=== PATIENT | female | born 1970 | race African-American/Black ===

== ENCOUNTER → 2016-12-12 | Outpatient (CLI) | payer BC ==
--- NOTE | 2016-12-15 09:05 | RAD ---
DATE: 12/12/2016 EXAM: DIGITAL SCREEN BILAT W/CAD HISTORY: Screening COMPARISON: 10/11/2015 This study was interpreted with the benefit of Computerized Aided Detection (CAD). FINDINGS: Breast Density: SCATTERED The breast parenchyma shows scattered fibroglandular densities. Breast parenchyma level B. There has been little change in the appearance of the breasts compared to the previous exam. Benign-appearing calcifications are noted. Lymph nodes are noted in both axilla. IMPRESSION: Benign findings BI-RADS CATEGORY: 2 BENIGN FINDING(S) RECOMMENDED FOLLOW-UP: 12M 12 MONTH FOLLOW-UP PQRS compliance statement: Patient information was entered into a reminder system with a target due date 12/12/2017 for the next mammogram. Mammography is a sensitive method for finding small breast cancers, but it does not detect them all and is not a substitute for careful clinical examination. A negative mammogram does not negate a clinically suspicious finding and should not result in delay in biopsying a clinically suspicious abnormality. "Our facility is accredited by the [employer] Mammography [employer]."
== END | disposition home or self-care (01) ==
LOC: MAMMO 14:39
PROVIDERS: ATTEND Internal Medicine
DX: Z12.31 Encounter for screening mammogram for malignant neoplasm of breast (principal)
CPT/HCPCS: G0202; 77067

== ENCOUNTER → 2017-09-25 | Outpatient (CLI) | payer BC ==
[2017-09-25] MEDS: LIDOCAINE WITH 8.4% SOD BICARB 3 ML DISP.SYRIN. INJ ×2 (14:20→14:26)
[2017-09-25] MEDS: BUPIVACAINE 0.5% 50 ML VIAL. IJ (14:25)
[2017-09-25] MEDS: methylPREDNISolone ACETATE 80 MG/ML VIAL. INT ART (14:25)
[2017-09-25] MEDS: IOHEXOL 300 MG/ML 10ML VIAL. IJ (14:26)
== END | disposition home or self-care (01) ==
LOC: RAD 12:51
DX: M25.551 Pain in right hip (principal)
CPT/HCPCS: 20605; 20610; 77002; J1040; J3490; Q9967

== ENCOUNTER → 2017-12-07 | Outpatient (CLI) | payer BC ==
[2017-12-07] MEDS: BUPIVACAINE 0.5% 50 ML VIAL. IJ (12:45)
[2017-12-07] MEDS: IOHEXOL 300 MG/ML 50 ML VIAL. IJ (12:45)
[2017-12-07] MEDS: methylPREDNISolone ACETATE 80 MG/ML VIAL. IM (13:50)
[2017-12-07] MEDS: LIDOCAINE WITH 8.4% SOD BICARB 3 ML DISP.SYRIN. INJ (13:51)
== END | disposition home or self-care (01) ==
LOC: RAD 14:44
DX: M25.551 Pain in right hip (principal)
CPT/HCPCS: 20605; 20610; 77002; J1040; J3490; Q9967

== ENCOUNTER → 2018-01-12 | Outpatient (CLI) | payer BC ==
--- NOTE | 2018-01-12 09:33 | RAD ---
DATE: 01/12/2018 EXAM: MAMMO CHARMAINE SCREENING BILATERAL HISTORY: Routine screening COMPARISON: 12/12/2016 This study was interpreted with the benefit of Computerized Aided Detection (CAD). The breast parenchyma is heterogeneously dense, which could reduce sensitivity of mammography. Breast parenchyma level C. FINDINGS: 2-D and 3-D tomosynthesis imaging was performed in CC and MLO projections. The residual anterior fibroglandular tissues are heterogeneously dense. No new or enlarging breast densities are seen. Benign type calcifications are present. No suspicious microcalcifications have developed. IMPRESSION: Stable mammograms without evidence of malignancy. BI-RADS CATEGORY: 2 BENIGN FINDING(S) RECOMMENDED FOLLOW-UP: 12M 12 MONTH FOLLOW-UP PQRS compliance statement: Patient information was entered into a reminder system with a target due date for the next mammogram. Mammography is a sensitive method for finding small breast cancers, but it does not detect them all and is not a substitute for careful clinical examination. A negative mammogram does not negate a clinically suspicious finding and should not result in delay in biopsying a clinically suspicious abnormality. "Our facility is accredited by the [employer] Mammography [employer]."
== END | disposition home or self-care (01) ==
LOC: MAMMO 08:18
PROVIDERS: ATTEND Internal Medicine
DX: Z12.31 Encounter for screening mammogram for malignant neoplasm of breast (principal)
CPT/HCPCS: 77063; 77067

== ENCOUNTER → 2018-03-15 | Outpatient (CLI) | payer BC ==
--- NOTE | 2018-03-15 08:34 | RAD ---
Pelvic ultrasound, 03/15/2018: HISTORY: Pelvic pain Transabdominal and transvaginal scans were obtained. By history the uterus and right ovary are surgically absent. The left ovary measures 3.6 x 2.5 x 2.3 cm. There are 2 small nodules in the left ovary which demonstrates hypoechoic and isoechoic components. These are probably complex cysts. Both of these measure approximately 1.7 cm. There is blood flow in the left ovary. No unusual pelvic mass or fluid collection is seen. IMPRESSION: 1. Status post hysterectomy and right pneumonectomy. 2. Small complicated cysts in the left ovary are probably functional. Sonographic follow-up is suggested. Electronically signed by: Rafi Ch MD (03/15/2018 8:31 AM) [facility]
== END | disposition home or self-care (01) ==
LOC: US 08:11
PROVIDERS: ATTEND Obstetrics & Gynecology
DX: N83.292 Other ovarian cyst, left side (principal); Z90.710 Acquired absence of both cervix and uterus
CPT/HCPCS: 76830; 76856